=== PATIENT | female | born 1970 | race Caucasian/White ===

== ENCOUNTER 2025-07-27 03:30 | Emergency (ER) | payer OTHER, SELFPAY ==
[2025-07-27 03:40] LABS: #Basophils 0.04 10x3/uL (0.0-0.2); #Eosinophils Less than 0.03 10x3/uL (0.0-0.5); #Monocytes 0.53 10x3/uL (0.0-1.1); #Neutrophils 6.38 10x3/uL (1.5-8.4); %Basophils 0.4 % (0.0-2.0); %Eosinophils 0.2 % (0.0-6.0); %Lymphocytes 35.9 % (18.0-47.0); %Monocytes 4.9 % (0.0-10.0); %Neutrophils 58.3 % (40.0-75.0); Hematocrit 45.0 % (34.9-44.5); Hemoglobin 15.3 g/dL (12.0-15.5); Mean Corpuscular Hemoglobin 31.2 pg (27.0-33.0); Mean Corpuscular Volume 91.6 fL (81.6-98.3); Platelet Count 301 10x3/uL (150-450); Red Blood Cell (RBC) Count 4.91 10x6/uL (3.90-5.03); White Blood Cell (WBC) Count 10.92 10x3/uL (3.5-10.5)
[2025-07-27] MEDS ORDERED: Pantoprazole 40 MG VIAL ONE (03:41)
[2025-07-27] MEDS ORDERED: Famotidine/PF 20 mg/2ml Vial ONE (03:41)
[2025-07-27 03:57] LABS: ALT (SGPT) 37 U/L (Less than 34); AST (SGOT) 63 U/L (11-34); Albumin 4.5 g/dL (3.1-4.5); Alkaline Phosphatase 109 U/L (40-110); Anion Gap 25 mmol/L (10-20); BUN (Urea Nitrogen) 13 mg/dL (9.8-20.1); Bilirubin, Total 0.5 mg/dL (0.3-1.2); Calc. Creatinine Clearance 0 mL/min (70-130); Calcium 9.1 mg/dL (7.8-10.44); Carbon Dioxide 19 mmol/L (22-29); Chloride 101 mmol/L (98-107); Globulin 3.8 g/dL (2.4-3.5); Glucose 121 mg/dL (70-105); Potassium 4.1 mmol/L (3.5-5.1); Sodium 141 mmol/L (136-145)
[2025-07-27 03:58] LABS: Acetaminophen Less than 10 mcg/mL (Less than 10); Lipase 76 U/L (8-78); Magnesium 2.0 mg/dL (1.6-2.6); Salicylate Less than 8.0 mg/dL (Less than 8.0)
[2025-07-27 04:04] LABS: Troponin I Less than 0.010 ng/mL (< 0.028)
[2025-07-27 05:04] LABS: Cocaine Metabolite Screen Negative (Negative); THC/Cannabinoid Screen Negative (Negative); Tricyclic Screen Negative (Negative)
== END 2025-07-27 07:24 | disposition home or self-care (01) ==
LOC: CSHERS 03:30
DX: F10.129 Alcohol abuse with intoxication, unspecified (principal); R94.5 Abnormal results of liver function studies; K21.9 Gastro-esophageal reflux disease without esophagitis; Z79.899 Other long term (current) drug therapy
CPT/HCPCS: 80053; 80306; 80307; 83690; 83735; 84484; 85025; 93005; 96374; 96375; J1308; J2470; J3411